=== PATIENT | male | born 1960 | race Caucasian/White ===

== ENCOUNTER 2017-01-25 12:07 | Emergency (ER) | payer MEDICARE ==
[2014-12-13 07:03] VITALS: BMI 32.2
[~2017-01-25 12:07] MED LIST: ALDACTONE25 MG PO; BENICAR40 MG PO; COREG6.25 MG PO; K-DUR20 MEQ PO; LANOXIN125 MCG PO; LASIX80 MG PO; NEXIUM40 MG PO; PRILOSEC20 MG PO
[2017-01-25 13:14] LABS: BASOPHILS 0.1 % (0-2); EOSINOPHILS 0.7 % (0-7); HEMOGLOBIN 13.8 g/dL (13.5-17.5); IMMATURE GRANULOCYTES 0.3 % (0-5); LYMPHOCYTES 17.9 % (15-50); MCH 29.2 pg (26.0-34.0); MCHC 34.5 g/dL (31.0-37.0); MCV 84.6 fL (80.0-100.0); MEAN PLATELET VOLUME 9.8 fL (7.4-10.4); MONOCYTES 8.5 % (2-11); NEUTROPHILS 72.5 % (40-80); PLATELET COUNT 231 10x3/uL (130-400); RBC 4.73 10x6/uL (4.20-6.10); WBC 8.7 10x3/uL (4.8-10.8)
[2017-01-25 13:16] LABS: APPEARANCE CLEAR (CLEAR); BILIRUBIN NEGATIVE (NEGATIVE); COLOR YELLOW (YELLOW); GLUCOSE 1000 mg/dL (NEGATIVE); KETONE NEGATIVE (NEGATIVE); LEUKOCYTE ESTERASE NEGATIVE (NEGATIVE); NITRITE NEGATIVE (NEGATIVE); PROTEIN NEGATIVE (NEGATIVE); UROBILINOGEN NORMAL (NORMAL)
[2017-01-25 13:20] LABS: WHITE CELLS - URINE 0-5 /hpf (0-5)
[2017-01-25 13:22] LABS: BACTERIA NONE SEEN /hpf (NONE SEEN); EPITHELIAL CELLS NSEEN /hpf (0-5)
[2017-01-25 13:34] LABS: KETONE - SERUM NEGATIVE (NEGATIVE)
[2017-01-25 13:40] LABS: ALBUMIN 3.5 g/dL (3.4-5.0); ALKALINE PHOSPHATASE 83 U/L (46-116); ALT (SGPT) 43 U/L (10-68); BILIRUBIN - TOTAL 0.71 mg/dL (0.2-1.3); CALCIUM 9.3 mg/dL (8.5-10.1); CARBON DIOXIDE 24.8 mmol/L (21.0-32.0); CHLORIDE - SERUM 99 mmol/L (98-107); CREATININE - SERUM 1.4 mg/dL (0.6-1.3); DIGOXIN 0.31 ng/mL (0.90-2.00); MAGNESIUM - SERUM 2.2 mg/dL (1.8-2.4); POTASSIUM - SERUM 4.1 mmol/L (3.5-5.1); PROTEIN - SERUM 8.3 g/dL (6.4-8.2); SODIUM 135 mmol/L (136-145); THYROID STIMULATING HORMONE 3.19 uIU/mL (0.36-3.74); UREA NITROGEN 19 mg/dL (7-18); eGFR NON AFRICAN AMERICAN 56 mL/min (90-120)
[2017-01-25 13:42] LABS: CALC OSMOLALITY 295 mosm/kg (275-300)
[2017-01-25 13:43] LABS: GLUCOSE 530 mg/dL (74-106)
== END 2017-01-25 15:27 | disposition home or self-care (01) ==
LOC: D.ER 12:07
PROVIDERS: Emergency Medicine
DX: E11.65 Type 2 diabetes mellitus with hyperglycemia (principal); I50.9 Heart failure, unspecified; I10 Essential (primary) hypertension; K21.9 Gastro-esophageal reflux disease without esophagitis

== ENCOUNTER → 2017-09-07 11:18 | Outpatient (CLI) | payer MEDICARE ==
[2014-12-13 07:03] VITALS: BMI 32.2
== END | disposition home or self-care (01) ==
LOC: D.US 08-31 14:30
DX: I12.9 Hypertensive chronic kidney disease with stage 1 through stage 4 chronic kidney disease, or unspecified chronic kidney disease (principal); N18.3 Chronic kidney disease, stage 3 (moderate); E11.22 Type 2 diabetes mellitus with diabetic chronic kidney disease; M10.9 Gout, unspecified; Z68.30 Body mass index [BMI] 30.0-30.9, adult

== ENCOUNTER 2019-02-14 06:12 | Day surgery (SDC) | payer MEDICARE ==
[~2019-02-14] VITALS: Ht 175.3 cm; Wt 93.0 kg
[2019-02-14] MEDS ORDERED: AMBIEN10 MG (07:13)
[2019-02-14] MEDS ORDERED: FLOMAX0.4 MG PO (07:14)
[2019-02-14] MEDS ORDERED: ZANAFLEX4 MG PO (07:14)
[2019-02-14] MEDS ORDERED: NORVASC5 MG PO (07:15)
[2019-02-14] MEDS ORDERED: HYDROCODON-ACE1 EA10 PO (07:15)
[2019-02-14] MEDS ORDERED: ZYLOPRIM100 MG PO (07:16)
[2019-02-14] MEDS ORDERED: GLUCOPHAGE500 MG PO (07:17)
[2019-02-14] MEDS ORDERED: LIPITOR10 MG (07:17)
[2019-02-14 07:32] VITALS: BP 114/70; Ht 175.3 cm; Wt 93.0 kg
--- NOTE | 2019-02-14 10:03 | HP ---
PATIENT: ROB MATTA JR MEDICAL RECORD: [id number] ACCOUNT: [id number] LOCATION:[facility] : 60 ADMISSION DATE: 02/14/19 PCP: XIN WALTER MD HISTORY AND PHYSICAL EXAMINATION CHIEF COMPLAINT: In need of endoscopy. HISTORY OF PRESENT ILLNESS: The patient has a history of Avilez esophagus. He last underwent endoscopy back in 2014. He is here to undergo surveillance upper endoscopy with biopsies due to a history of Avilez's esophagus. He has had no hematemesis. No dysphagia. He also has a history of colon polyps. He is here to undergo surveillance colonoscopy due to a history of colon polyps. He has had no abdominal pain. No rectal bleeding. PAST MEDICAL AND SURGICAL HISTORY: AICD, atrial fibrillation, congestive heart failure, hypertension, gastroesophageal reflux disease, non-insulin dependent diabetes mellitus, osteoarthritis. HOME MEDICATIONS: Please see the nursing list. I note no blood thinners. ALLERGIES: No known drug allergies. PHYSICAL EXAMINATION: GENERAL: The patient does not appear acutely ill. He does not appear chronically ill. VITAL SIGNS: Reviewed. EARS: External ears appear normal. EYES: Extraocular movements are intact. NECK: Trachea is midline. CHEST: No intercostal retractions. PULMONARY: Nonlabored, no stridor. ABDOMEN: No peritonitis. IMPRESSION: 1. History of Avilez's esophagus. 2. History of colon polyps. PLAN: Surveillance upper and lower endoscopies. TRANSINT:[id number] Voice Confirmation ID: [id number] DOCUMENT ID: [id number] cc: Dr. Mor Gomez, PRINCE CORONADO MD at 1003 CC: XIN WALTER MD and DR. MOR GOMEZ [phone] DICTATION DATE: 02/14/1923 ELECTRONIC COMPONENT PROCESSOR: 02/14/19 [id number] [place] [address]
--- NOTE | 2019-02-14 10:40 | NUR ---
DC INSTRUCTIONS GIVEN TO PT. STATES UNDERSTANDING. DC'D IV CATH FULLY INTACT.
--- NOTE | 2019-02-14 10:45 | NUR ---
PT LEFT UNIT VIA WC AT 1048
--- NOTE | 2019-02-14 14:43 | OP ---
PATIENT NAME: ROB MATTA JR MEDICAL RECORD: [id number] :60 LOCATION:D.OPS ADMISSION DATE: SURGEON: WILEY CORONADO MD DATE OF OPERATION: 02/14/2019 PREOPERATIVE DIAGNOSES: 1. History of Avilez esophagus in need of surveillance upper endoscopy. 2. History of colon polyps, in need of surveillance colonoscopy. POSTOPERATIVE DIAGNOSES: 1. History of Avilez esophagus in need of surveillance upper endoscopy. 2. History of colon polyps, in need of surveillance colonoscopy. 3. Large hiatal hernia. 4. Inadequate colonic prep. No obstructing colonic polyps or masses. PROCEDURES: 1. EGD with antral and distal esophageal biopsies. 2. Total colonoscopy to cecum. SURGEON: Wiley Coronado MD GENERATOR OPERATOR STRAIGHT BEVEL GEAR: None. BLOOD LOSS: Minimal. ANESTHESIA: IV sedation. COMPLICATIONS: None. The risks, possible complications, and alternatives to the procedure were explained to the patient. He elects to proceed. The discussion specifically included, but was not limited to, bleeding requiring emergency reoperation, infection, perforation. OPERATIVE COURSE: The patient was conveyed to the endoscopy suite electively on 02/14/2019. IV sedation was induced by the anesthesia staff. A bite block was inserted. A gastroscope was inserted into the mouth. It was advanced easily into the hypopharynx. The esophagus was easily intubated as were the stomach and duodenum. Upon withdrawal, retroflexed and angulus views were obtained. Antral biopsies were obtained. Distal esophageal biopsies were obtained. The endoscope was then withdrawn under direct vision. The patient was turned 180 degrees and placed in the Rosenthal position. A digital rectal examination was performed. A colonoscope was inserted through the anus. It was easily advanced to the cecum. The prep was inadequate. I can only exclude obstructing colonic polyps or masses due to the amount of food material that was still present within the colon. I slowly withdrew the endoscope. I irrigated and aspirated extensively. I dragged the folds. A retroflexed view was obtained in the rectum. I then unretroflexed the scope and I removed it under direct vision. I will plan for the patient's next surveillance upper and lower endoscopies to take place in 3 years. I will see him in the office in 2-3 weeks. OPERATIVE REPORT [id number] ROB MATTA JR TRANSINT:[id number] Voice Confirmation ID: [id number] DOCUMENT ID: [id number] WILEY CORONADO MD at 1443 CC: XIN WALTER MD [id number] DICTATION DATE: 02/14/19 1013 SOCIAL SCIENCES INSTRUCTOR: 02/14/19 1102 [facility] 02/14/19 [id number] [place] [id number]
== END 2019-02-14 10:45 | disposition home or self-care (01) ==
LOC: D.OPS 06:12
PROVIDERS: ATTEND Surgery
DX: K44.9 Diaphragmatic hernia without obstruction or gangrene (principal); Z86.010 Personal history of colon polyps; Z01.812 Encounter for preprocedural laboratory examination

== ENCOUNTER → 2019-03-28 07:21 | Outpatient (CLI) | payer MEDICARE ==
[2019-02-14 07:32] VITALS: BMI 30.3
[~2019-03-28 07:21] MED LIST changes: +AMBIEN10 MG; +FLOMAX0.4 MG PO; +GLUCOPHAGE500 MG PO; +HYDROCODON-ACE1 EA10 PO; +LIPITOR10 MG; +NORVASC5 MG PO; +ZANAFLEX4 MG PO; +ZYLOPRIM100 MG PO
== END | disposition home or self-care (01) ==
LOC: D.OPS 07:21
PROVIDERS: ATTEND Surgery
DX: K21.9 Gastro-esophageal reflux disease without esophagitis (principal)

== ENCOUNTER 2019-05-18 09:00 | Outpatient (CLI) | payer MEDICARE ==
[2019-02-14 07:32] VITALS: BMI 30.3
== END 2019-05-18 10:00 | disposition home or self-care (01) ==
LOC: D.MAMMO 09:00
PROVIDERS: ATTEND Family Medicine Adult Medicine
DX: N64.4 Mastodynia (principal)